=== PATIENT | female | born 1990 | race American Indian/Alaskan Native ===

== ENCOUNTER 2021-05-23 08:36 | Emergency (ER) | payer OTHER ==
[2021-05-23 08:45] VITALS: BP 151/83
[2021-05-23] MEDS ORDERED: ONDANSETRON 4 MG ODT TAB PO ONE (09:24)
--- NOTE | 2021-05-23 09:28 | Emergency Department Report ---
ED Head Trauma HPI - General Chief complaint: Head Injury Stated complaint: HEAD INJURY Time Seen by Provider: 05/23/21 08:55 Source: patient Mode of arrival: Ambulatory Limitations: No Limitations - History of Present Illness Initial comments: 31-year-old female who denies any significant past medical history presents to the ER today for evaluation after a head injury. Patient states that the incident occurred around 5:30 AM this morning. She states that she was walking around try to get ready for work when she stepped on a plastic container, slip ped and fell backward and she struck the back of her head. She denies any LOC, but she states that since that incident she has had pain to the back of her head, she has felt dizzy, she has been nauseous and vomited once and has been having some soreness to her neck. She reports no back pain, chest pain or abdominal pain or any extremity pain or injury. She reports no numbness, tingling or weakness. She is not currently on any blood thinners. She reports no bleeding or any apparent open wounds. MD Complaint: head injury -: This morning - Related Data Previous Rx's Medication Instructions Recorded Last Taken Type Acetaminophen [Acetaminophen 8 650 mg PO Q8HR #30 05/23/21 Unknown Rx Hour] Ondansetron [Zofran Odt] 4 mg PO Q8HR #15 tab.rapdis 05/23/21 Unknown Rx Allergies/Adverse reactions: Allergies Allergy/AdvReac Type Severity Reaction Status Date / Time No Known Allergies Allergy Verified 05/23/21 08:42 ED Review of Systems ROS: Stated complaint: HEAD INJURY Other details as noted in HPI Comment: All other systems reviewed and negative Constitutional: denies: chills, fever Eyes: denies: eye pain, eye discharge, vision change ENT: denies: ear pain, throat pain, dental pain, hearing loss, congestion Respiratory: denies: cough, orthopnea, shortness of breath, SOB with exertion, SOB at rest, wheezing Cardiovascular: denies: chest pain, palpitations Gastrointestinal: nausea, vomiting. denies: abdominal pain, diarrhea, constipation, hematemesis, melena, hematochezia Genitourinary: denies: urgency, dysuria, frequency, hematuria, discharge Musculoskeletal: arthralgia, myalgia, other (neck pain) Skin: denies: rash, lesions Neurological: headache. denies: weakness, numbness, paresthesias, confusion, abnormal gait, vertigo Psychiatric: denies: anxiety, depression, auditory hallucinations, visual hallucinations, homicidal thoughts, suicidal thoughts Hematological/Lymphatic: denies: easy bleeding, easy bruising, swollen glands ED Past Medical Hx - Past Medical History Previous Medical History?: No - Surgical History Past Surgical History?: No - Medications Home Medications: Home Medications Medication Instructions Recorded Confirmed Last Taken Type Acetaminophen [Acetaminophen 8 650 mg PO Q8HR #30 05/23/21 Unknown Rx Hour] Ondansetron [Zofran Odt] 4 mg PO Q8HR #15 tab.rapdis 05/23/21 Unknown Rx ED Physical Exam - General Limitations: No Limitations General appearance: alert, in no apparent distress, obese - Head Head exam: Present: atraumatic, normocephalic, normal inspection, other (mild ttp occipital scalp ; no swelling, bruising, crepitus or deformity noted. ) - Eye Eye exam: Present: normal appearance, PERRL, EOMI Pupils: Present: normal accommodation - ENT ENT exam: Present: normal exam, mucous membranes moist, TM's normal bilaterally - Neck Neck exam: Present: normal inspection, tenderness (Mild paraspinal muscle ttp bilaterally. ), full ROM. Absent: meningismus - Respiratory Respiratory exam: Present: normal lung sounds bilaterally. Absent: respiratory distress, wheezes, rales, rhonchi - Cardiovascular Cardiovascular Exam: Present: regular rate, normal rhythm, normal heart sounds - GI/Abdominal GI/Abdominal exam: Present: soft. Absent: distended, tenderness, guarding, rebound - Neurological Exam Neurological exam: Present: alert, oriented X3, CN II-XII intact, normal gait - Psychiatric Psychiatric exam: Present: normal affect, normal mood - Skin Skin exam: Present: intact ED Course Vital Signs 05/23/21 08:42 Temperature 98.4 F Pulse Rate 63 Respiratory 16 Rate Blood Pressure 151/83 [Left] O2 Sat by Pulse 100 Oximetry - Radiology Data Radiology results: report reviewed Patient: MATI JUNIOR MR#: [id number] : 1990 Acct:[id number] Age/Sex: 31 / F ADM Date: 05/23/21 Loc: ED Attending Dr: Ordering Physician: DEBORAH PICHARDO Date of Service: 05/23/21 Procedure(s): CT cervical spine wo con Accession Number(s): [id number] cc: DEBORAH PICHARDO CT CERVICAL SPINE WITHOUT CONTRAST INDICATION: fall backward/head injury/neck pain. TECHNIQUE: Axial imaging performed through the cervical spine without the use of contrast. Sagittal and coronal reconstructed images were also reviewed. All CT scans at this location are pe rformed using CT dose reduction for ALARA by means of automated exposure control. COMPARISON: None FINDINGS: Alignment: Spinal alignment is normal. Bones: There is no acute osseous abnormality. Mild discogenic DJD is identified at C5-6. The remaining disc levels and facet joints are unremarkable. Soft tissues: No acute or significant incidental soft tissue abnormality. IMPRESSION: No acute abnormality. Mild cervical spondylosis as described. Signer Name: Artie Puentes Jr, MD Signed: 05/23/2021 10:10 AM Workstation Name: [id number] Transcribed By: TTR Dictated By: ARTIE PUENTES JR, MD Electronically Authenticated By: ARTIE PUENTES JR, MD Signed Date/Time: 05/23/21 1010 DD/ 1008 TD/TT: Patient: MATI JUNIOR MR#: [id number] : 1990 Acct:[id number] Age/Sex: 31 / F ADM Date: 05/23/21 Loc: ED Attending Dr: Ordering Physician: DEBORAH PICHARDO Date of Service: 05/23/21 Procedure(s): CT head/brain wo con Accession Number(s): [id number] cc: DEBORAH PICHARDO CT head/brain wo con INDICATION: fall backward/head injury/neck pain. TECHNIQUE: Routine CT head. All CT scans at this location are performed using CT dose reduction for ALARA by means of automated exposure control. COMPARISON: None. FINDINGS: Intracranial: Morales-white matter differentiation is maintained. No intracranial hemorrhage. No extra axial collection. No hydrocephalus. No herniation. Sinuses: Paranasal sinuses and mastoid air cells are essentially clear. Orbits: Globes are intact. Calvarium: No acute fracture. IMPRESSION: 1. No acute intracranial abnormality. Signer Name: Kiran Silva MD Signed: 05/23/2021 10:10 AM Workstation Name: [id number] Transcribed By: ERIK Dictated By: Kiran Silva MD Electronically Authenticated By: Kiran Silva MD Signed Date/Time: 05/23/21 1010 DD/ 1009 TD/TT: - Medical Decision Making CT head shows nothing acute. CT cervical spine shows nothing acute. Patient sleeping comfortably on the recliner and she is easily arousable. She currently has a GCS of 15. She is neurologically intact and her gait is normal. She is not toxic or ill-appearing. Discussed imaging results with patient. Discussed suspected diagnosis with patient. At this time there is no indication for any additional testing, emergent specialist consult or transfer/admission. Patient expressed understanding of instructions and agree with plan. Patient stable at time of discharge. Critical care attestation.: If time is entered above; I have spent that time in minutes in the direct care of this critically ill patient, excluding procedure time. ED Disposition Clinical Impression: Scalp contusion, Head injury, closed, without LOC, Cervical strain, acute Disposition: 01 HOME / SELF CARE / HOMELESS Is pt being admited?: No Does the pt Need Aspirin: No Condition: Stable Instructions: Facial or Scalp Contusion, Fnof-gh-Pnoy, Cervical Sprain Additional Instructions: You can take tylenol as prescribed to help with pain. Take the zofran to help with any nausea or vomiting. Follow up with your primary care doctor next week, if you do not have a primary care doctor will be provided for you in your discharge instructions. Return to the ER if your symptoms changes or worsens in any way. Prescriptions: Acetaminophen [Acetaminophen 8 Hour] 650 mg PO Q8HR #30 Ondansetron [Zofran Odt] 4 mg PO Q8HR #15 tab.rapdis Referrals: PRIMARY CARE, [Primary Care Provider] - 3-5 Days MYRA SNOW MD [Staff Physician] - 3-5 Days TAB DANIELLE MD [Staff Physician] - 3-5 Days Forms: Work/School Release Form(ED) Time of Disposition: 10:21
--- NOTE | 2021-05-23 10:14 | Cat Scan Report ---
CT head/brain wo con INDICATION: fall backward/head injury/neck pain. TECHNIQUE: Routine CT head. All CT scans at this location are performed using CT dose reduction for A NADIA by means of automated exposure control. COMPARISON: None. FINDINGS: Intracranial: Morales-white matter differentiation is maintained. No intracranial hemorrhage. No extra a xial collection. No hydrocephalus. No herniation. Sinuses: Paranasal sinuses and mastoid air cells are essentially clear. Orbits: Globes are intact. Calvarium: No acute fracture. IMPRESSION: 1. No acute intracranial abnormality. Signer Name: Kiran Silva MD Signed: 05/23/2021 10:10 AM Workstation Name: [id number]
--- NOTE | 2021-05-23 10:14 | Cat Scan Report ---
CT CERVICAL SPINE WITHOUT CONTRAST INDICATION: fall backward/head injury/neck pain. TECHNIQUE: Axial imaging performed through the cervical spine without the use of contrast. Sagittal and coronal reconstructed images were also reviewed. All CT scans at this location are performed us ing CT dose reduction for ALARA by means of automated exposure control. COMPARISON: None FINDINGS: Alignment: Spinal alignment is normal. Bones: There is no acute osseous abnormality. Mild discogenic DJD is identified at C5-6. The remain ing disc levels and facet joints are unremarkable. Soft tissues: No acute or significant incidental soft tissue abnormality. IMPRESSION: No acute abnormality. Mild cervical spondylosis as described. Signer Name: Artie Puentes Jr, MD Signed: 05/23/2021 10:10 AM Workstation Name: [id number]
== END 2021-05-23 12:22 | disposition home or self-care (01) ==
LOC: ED 08:36
DX: S16.1XXA Strain of muscle, fascia and tendon at neck level, initial encounter (principal); S00.03XA Contusion of scalp, initial encounter; Z79.899 Other long term (current) drug therapy; W18.39XA Other fall on same level, initial encounter; Y93.89 Activity, other specified; Y92.89 Other specified places as the place of occurrence of the external cause; Y99.8 Other external cause status
CPT/HCPCS: 70450; 72125; 99283; J3490; Q0162

== ENCOUNTER 2021-10-09 08:28 | Outpatient (CLI) | payer OTHER ==
[2021-10-09 10:31] LABS: Basophils # (Auto) 0.1 K/mm3 (0.0-0.1); Eosinophils # (Auto) 0.1 K/mm3 (0.0-0.4); Eosinophils % (Auto) 1.9 % (0.0-4.3); Hematocrit 40.7 % (30.3-42.9); Hemoglobin 13.2 gm/dl (10.1-14.3); Lymphocytes # (Auto) 2.7 K/mm3 (1.2-5.4); Lymphocytes % (Auto) 38.9 % (13.4-35.0); Mean Corpuscular HGB Conc 32 % (30-34); Mean Corpuscular Volume 95 fl (79-97); Monocytes # (Auto) 0.5 K/mm3 (0.0-0.8); Monocytes % (Auto) 7.6 % (0.0-7.3); Platelet Count 217 K/mm3 (140-440); Red Blood Count 4.31 M/mm3 (3.65-5.03); Red Cell Distribution Width 13.4 % (13.2-15.2)
[2021-10-09 10:46] LABS: Alanine Aminotransferase 18 units/L (7-56); Albumin 4.3 g/dL (3.9-5); BUN/Creatinine Ratio 10; Blood Urea Nitrogen 8 mg/dL (7-17); Calcium 9.2 mg/dL (8.4-10.2); Hemolysis Index 2
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
== END 2021-10-09 08:29 | disposition home or self-care (01) ==
LOC: US 08:28
PROVIDERS: ATTEND Surgery
DX: R16.0 Hepatomegaly, not elsewhere classified (principal); K42.9 Umbilical hernia without obstruction or gangrene
CPT/HCPCS: 36415; 76700; 80053; 85025

== ENCOUNTER 2022-01-01 19:09 | Emergency (ER) | payer OTHER ==
[2022-01-02] MEDS ORDERED: ACETAMINOPHEN 500 MG TAB PO ONE (05:54)
[2022-01-02] MEDS ORDERED: diphenhydrAMINE 25 MG CAP PO ONE (05:54)
[2022-01-02] MEDS ORDERED: METOCLOPRAMIDE 10 MG TAB PO ONE (05:54)
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
[2022-01-02 08:21] VITALS: BP 123/62
== END 2022-01-02 07:27 | disposition home or self-care (01) ==
LOC: ED 19:09
DX: S16.1XXA Strain of muscle, fascia and tendon at neck level, initial encounter (principal); V89.2XXA Person injured in unspecified motor-vehicle accident, traffic, initial encounter; Y93.89 Activity, other specified; Y92.89 Other specified places as the place of occurrence of the external cause; Y99.8 Other external cause status
CPT/HCPCS: 72040; 99283